=== PATIENT | female | born 1995 | race Caucasian/White ===

== ENCOUNTER 2019-08-31 17:24 | Emergency (ER) | payer BC ==
[~2019-08-31] VITALS: Ht 165.1 cm; Wt 86.2 kg
[2019-08-31] MEDS ORDERED: METFORMIN HCL1000 M1 ORAL (17:36)
[2019-08-31] MEDS ORDERED: VYVANSE50 MG ORAL (17:36)
--- NOTE | 2019-08-31 17:45 | NUR ---
ED Nurse Note: Pt walked in ED from home c/o right lower abdominal campos, nausea started today, no vomiting. Pt aox4, no distress noted, VSS. Pt states LMP was 4-5 months ago, per patient she has IUD. Last BM was yesterday. Denies diarrhea. UA collected and sent down to lab.
[2019-08-31 17:47] VITALS: BP 126/81
--- NOTE | 2019-08-31 17:50 | NUR ---
ED Nurse Note: Denies problems urinating. ERMD at bedside.
--- NOTE | 2019-08-31 17:56 | Emergency Room Report ---
History of Present Illness General Chief Complaint: Abdominal Pain Source: Patient Present Illness HPI 24-year-old female presenting with right lower quadrant abdominal pain worsening over the last 3 days. Reports pain is sharp nonradiating. She has not tried anything for pain. Nothing makes pain better or worse. Not associated with vaginal bleeding or discharge. Associated with nausea decreased appetite and diarrhea. Patient denies fevers or chills. Patient denies any recent travel. Patient denies any abdominal surgeries. Allergies: Coded Allergies: No Known Allergies (Unverified , 08/31/19) Patient History Last Menstrual Period: IUD Nursing Documentation-[facility] Past Medical History: No Stated History Review of Systems All Other Systems: negative except mentioned in HPI Physical Exam Vital Signs Date Time Temp Pulse Resp B/P (MAP) Pulse Ox O2 Delivery O2 Flow Rate FiO2 08/31/19 17:33 98.1 96 18 126/81 (96) 99 Room Air Sp02 EP Interpretation: reviewed, normal General Appearance: no apparent distress, alert, GCS 15, non-toxic Head: normocephalic, atraumatic Eyes: bilateral eye normal inspection, bilateral eye PERRL ENT: hearing grossly normal, normal pharynx, no angioedema, normal voice Neck: full range of motion, supple/symm/no masses Respiratory: chest non-tender, lungs clear, normal breath sounds, speaking full sentences Cardiovascular #1: regular rate, rhythm, no edema Cardiovascular #2: 2+ carotid (R), 2+ carotid (L), 2+ radial (R), 2+ radial (L) , 2+ dorsalis pedis (R), 2+ dorsalis pedis (L) Gastrointestinal: normal bowel sounds, soft, non-distended, no guarding, no rebound, tenderness - Right lower quadrant no rebound or guarding Rectal: deferred Genitourinary: normal inspection, no CVA tenderness Musculoskeletal: back normal, gait/station normal, normal range of motion, non- tender, calf tenderness Neurologic: alert, oriented x3, responsive, motor strength/tone normal, sensory intact, speech normal Psychiatric: judgement/insight normal, memory normal, mood/affect normal, no suicidal/homicidal ideation Reflexes: 3+ bicep (R), 3+ bicep (L), 3+ tricep (R), 3+ tricep (L), 3+ knee (R) , 3+ knee (L) Lymphatic: no adenopathy Medical Decision Making ER Course 24-year-old female presenting with right lower quadrant abdominal pain Differential diagnosis: Appendicitis mesenteric adenitis infection small bowel obstruction colitis ischemia ovarian cyst Patient found to have mesenteric adenitis no signs of appendicitis reviewed blood testing showing mild leukocytosis patient discharged with anti- inflammatories advised to follow-up with primary care doctor or clinic in the next 2 days. patient given clear warning signs on return to ER CT/MRI/US Diagnostic Results CT/MRI/US Diagnostic Results : Imaging Test Ordered: CT abdomen pelvis with IV contrast Impression IMPRESSION: Small nonspecific nodes are seen in the mesentery along the right side of the abdomen. This may be related to mesenteric adenitis. The exam is otherwise grossly unremarkable. Evaluation is limited secondary to suboptimal contrast opacification as described above. Last Vital Signs Date Time Temp Pulse Resp B/P (MAP) Pulse Ox O2 Delivery O2 Flow Rate FiO2 08/31/19 17:47 96 18 Room Air 08/31/19 17:47 98.1 126/81 99 Disposition: HOME, SELF-CARE Condition: Stable Scripts Ibuprofen* (MOTRIN*) 600 Mg Tablet 600 MG ORAL Q8H PRN for For Pain, #30 TAB 0 Refills Prov: Alex Ledezma M.D. 08/31/19 Alex Ledezma M.D. Aug 31, 2019 17:56
[2019-08-31] MEDS ORDERED: Omnipaque-300 100ml vial INJ PRN (18:00)
--- NOTE | 2019-08-31 18:15 | NUR ---
ED Nurse Note: blood collected and sent down to lab.
[2019-08-31 18:32] LABS: BASOPHILS % (AUTO) 1.1 % (0.0-2.0); EOSINOPHILS % (AUTO) 3.4 % (0.0-3.0); HEMATOCRIT 41.1 % (37.0-47.0); HEMOGLOBIN 13.2 G/DL (12.0-16.0); LYMPHOCYTES % (AUTO) 23.8 % (20.0-45.0); MEAN CORPUSCULAR VOLUME 81 FL (80-99); MONOCYTES % (AUTO) 9.8 % (1.0-10.0); NEUTROPHILS % (AUTO) 61.9 % (45.0-75.0); PLATELET COUNT 446 K/UL (150-450); RED BLOOD COUNT 5.11 M/UL (4.20-5.40); RED CELL DISTRIBUTION WIDTH 13.1 % (11.6-14.8); WHITE BLOOD COUNT 11.3 K/UL (4.8-10.8)
[2019-08-31 18:32] LABS: APPEARANCE,URINE CLEAR; BILIRUBIN, URINE NEGATIVE (NEGATIVE); COLOR,URINE PALE YELLOW; GLUCOSE, URINE (UA) NEGATIVE (NEGATIVE); KETONES,URINE NEGATIVE (NEGATIVE); LEUKOCYTE ESTERASE ,URINE NEGATIVE (NEGATIVE); NITRITE,URINE NEGATIVE (NEGATIVE); PH,URINE 8 (4.5-8.0); PROTEIN,URINE NEGATIVE (NEGATIVE); UROBILINOGEN,URINE NORMAL MG/DL (0.0-1.0)
[2019-08-31 18:36] LABS: ANION GAP 8 mmol/L (5-15); BLOOD UREA NITROGEN 12 mg/dL (7-18); CALCIUM 9.8 MG/DL (8.5-10.1); CARBON DIOXIDE 29 MMOL/L (21-32); CHLORIDE 103 MMOL/L (98-107); CREATININE 0.8 MG/DL (0.55-1.30); POTASSIUM 4.1 MMOL/L (3.5-5.1); SODIUM 140 MMOL/L (136-145)
[2019-08-31 18:41] LABS: ALANINE AMINOTRANSFERASE 87 U/L (12-78); ALBUMIN 4.1 G/DL (3.4-5.0); ALKALINE PHOSPHATASE 89 U/L (46-116); ASPARTATE AMINO TRANSFERASE 45 U/L (15-37); BILIRUBIN,TOTAL 0.3 MG/DL (0.2-1.0)
[2019-08-31 18:55] VITALS: BP 121/78
--- NOTE | 2019-08-31 19:02 | NUR ---
HAND-OFF: Report given to DEVEN Alcala.
--- NOTE | 2019-08-31 19:04 | NUR ---
ED Nurse Note: Receieved report from Michelle CARVALHO. Pt alert, oriented. No SOB. Breathing even and unlabored. VSS.
--- NOTE | 2019-08-31 19:18 | NUR ---
ED Nurse Note: Pt taken for CT.
--- NOTE | 2019-08-31 20:41 | Diagnostic Imaging Report ---
EXAM: CT Abdomen and Pelvis With Intravenous Contrast CLINICAL HISTORY: ABD PAIN TECHNIQUE: Axial computed tomography images of the abdomen and pelvis with intravenous contrast. CTDI is 15.0 mGy and DLP is 879.7 mGy-cm. One or more of the following dose reduction techniques were used: automated exposure control, adjustment of the mA and or kV according to patient size, use of iterative reconstruction technique. Coronal and sagittal reformatted images were created and reviewed. COMPARISON: No relevant prior studies available. FINDINGS: Lung bases: The lung bases are unremarkable. ABDOMEN: Liver: The liver is grossly unremarkable. Gallbladder and bile ducts: The gallbladder is grossly unremarkable. No calcified stones. The common biliary duct is at the upper limits of normal in size measuring 6 mm. Pancreas: The pancreas is grossly unremarkable. No ductal dilation. Spleen: The spleen is grossly unremarkable. Adrenals: The adrenals are grossly unremarkable. Kidneys and ureters: Evaluation is limited secondary to suboptimal contrast opacification. Only a small amount of contrast is appreciated within the renal collecting systems. There is no significant contrast enhancement of the intra-abdominal organs or vascular structures. Contrast material is seen within the renal collecting systems. The kidneys are otherwise grossly unremarkable. No hydronephrosis. Stomach and bowel: Evaluation of the distal transverse, descending, and sigmoid colon is limited secondary to poor distention. No definite evidence for bowel related inflammatory changes. No evidence for significant bowel loop dilation to suggest an obstructive process. PELVIS: Appendix: The appendix is unremarkable. Bladder: The bladder is grossly unremarkable. Reproductive: Unremarkable as visualized. ABDOMEN and PELVIS: Intraperitoneal space: Question of a trace amount of nonspecific free fluid in the pelvis. No evidence for free intraperitoneal gas. Bones joints: No acute fracture. No dislocation. Soft tissues: Small umbilical hernia containing fat only. Vasculature: See above. Lymph nodes: Small nonspecific nodes are seen in the mesentery along the right side of the abdomen. This may be related to mesenteric adenitis. Tubes, lines and devices: Intrauterine device within the uterus. IMPRESSION: Small nonspecific nodes are seen in the mesentery along the right side of the abdomen. This may be related to mesenteric adenitis. The exam is otherwise grossly unremarkable. Evaluation is limited secondary to suboptimal contrast opacification as described above.
[2019-08-31] MEDS ORDERED: IBUPROFEN600 MG ORAL (20:54)
[2019-08-31 21:03] VITALS: BP 121/78
--- NOTE | 2019-08-31 21:03 | NUR ---
ED Nurse Note: Pt cleared by ERMD for discharge. DC instructions/prescription was given and explained to pt and verbalized understanding of teachings. All medical deviecs such as ID band and IV line removed. Pt is AAO x4, ambulatory and left with all personal belongings. Accompanied by family member.
== END 2019-08-31 21:03 | disposition home or self-care (01) ==
LOC: EMR 17:59
DX: R10.31 Right lower quadrant pain (principal); Z97.5 Presence of (intrauterine) contraceptive device; I88.0 Nonspecific mesenteric lymphadenitis; D72.829 Elevated white blood cell count, unspecified
CPT/HCPCS: 36415; 74177; 80053; 81003; 81025; 83690; 85025; 99284; Q9967